=== PATIENT | female | born 1955 | race American Indian/Alaskan Native ===

== ENCOUNTER 2017-02-28 09:48 | Inpatient (IN) | payer MEDICAID ==
[2017-02-26 16:51] VITALS: BMI 45.3
[2017-02-28] MEDS ORDERED: HYDROmorphone 1 mg/ml ISec ONE ×2 (16:19→19:55)
[2017-02-28] MEDS ORDERED: HYDROmorphone 1 mg/ml ISec IVP PRN (19:48)
[2017-02-28] MEDS ORDERED: Fluticasone Nasal 50 mcg/Spray NS PRN (22:26)
[2017-02-28] MEDS ORDERED: Oxycodone/Acetaminophen 5/325 mg Tab PO PRN (22:26)
[2017-03-01 07:32] LABS: BASO # 0.1 K/uL (0.0-0.2); BASO % 0.6 % (0.0-2.0); EOS # 0.3 K/uL (0.0-0.7); EOS % 3.2 % (0.0-4.0); HEMATOCRIT 34.5 % (34.0-47.0); LYMPH # 2.6 K/uL (1.0-4.3); LYMPH % 28.6 % (20.0-40.0); MEAN CELL VOLUME 93.1 fL (81.0-99.0); MEAN CORPUSCULAR HEMOGLOBIN 31.2 pg (27.0-31.0); MEAN CORPUSCULAR HGB CONC 33.5 g/dL (33.0-37.0); MEAN PLATELET VOLUME 10.3 fL (7.2-11.7); MONO # 0.8 K/uL (0.0-0.8); MONO % 8.7 % (0.0-10.0); NRBC % 0.1 % (0.0-2.0); RED CELL DISTRIBUTION WIDTH 14.3 % (11.5-14.5)
[2017-03-01 07:54] LABS: CHLORIDE 107 mmol/L (98-107); SODIUM 138 mmol/L (132-148)
[2017-03-01 07:55] LABS: POTASSIUM 4.5 mmol/L (3.6-5.2)
[2017-03-01 07:57] LABS: ALB/GLOB RATIO 0.9 (1.0-2.1); ALKALINE PHOSPHATASE 144 U/L (38-126); AST/SGOT 36 U/L (14-36); BILIRUBIN,TOTAL 0.5 mg/dL (0.2-1.3); BLOOD UREA NITROGEN 11 mg/dL (7-17); CARBON DIOXIDE 26 mmol/L (22-30); GFR AFRICAN-AMERICAN > 60; GLUCOSE,RANDOM 209 mg/dL (65-105); TOTAL PROTEIN 6.5 g/dL (6.3-8.3)
[2017-03-01 07:58] LABS: ALT/SGPT 68 U/L (9-52); CALCIUM 8.5 mg/dl (8.6-10.4)
[2017-03-01 08:03] VITALS: RESP 20; TEMP 97.9
[2017-03-01] MEDS ORDERED: INSULIN LISPRO PROTAMINE SC SCH (10:00)
[2017-03-01] MEDS ORDERED: ALOGLIPTIN BENZOATE 25 MG PO SCH (10:00)
[2017-03-01] MEDS ORDERED: INSULIN LISPRO SC SCH (10:00)
[2017-03-01] MEDS ORDERED: Midazolam 2 MG/2 ML VIAL ONE ×2 (10:06→11:36)
[2017-03-01] MEDS ORDERED: Iodixanol 320 MG/ML 200 ML BOTTLE IV ONE (10:07)
[2017-03-01] MEDS ORDERED: Lidocaine 2% Inj (20ml) ONE ×2 (10:10→11:34)
[2017-03-01] MEDS: Dorzolamide 2% Opht Sol 10ml OU SCH ×2 (11:00→18:49)
[2017-03-01] MEDS: Magnesium Oxide 400 mg Tab UD PO SCH ×2 (11:00→18:42)
[2017-03-01] MEDS ORDERED: HYDROmorphone 1 mg/ml ISec ONE (12:51)
[2017-03-01] MEDS ORDERED: HYDROmorphone 1 mg/ml ISec IVP STA (12:54)
[2017-03-01 18:09] VITALS: PULSE 74; O2SAT 95
[2017-03-01 18:55] VITALS: BP 130/90
[2017-03-01] MEDS ORDERED: (Lantus) Insulin Glargine, Recombinant SC SCH (22:00)
--- NOTE | 2017-03-08 07:38 | PROCN ---
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 The patient was subsequently sent to the emergency room and was admitted on 02/27. I evaluated the patient on 02/28 and noted to have severely decreased perfusion to the right lower extremity where she had a nonhealing ulcer. The patient was subsequently transferred over to [facility] and underwent an emergent peripheral angiogram for worsening gangrene and pain of the right lower extremity. PROCEDURES PERFORMED: Distal abdominal aortogram with bilateral iliac runoff, selective bilateral iliofemoral angiogram with runoff, 6-Armenian left femoral arterial access, METAL RIVETING MACHINE OPERATOR stenting of the right common iliac and external iliac artery with use of 8.0 x 58 mm balloon expandable Viabahn stent, lesion reduction from 90% down to less than 10% and improvement in gradient from 90 mmHg down to less than 5 mmHg. A 6-Armenian bilateral femoral arterial access. Manual pressure for hemostasis. TECHNIQUES OF PROCEDURE: After obtaining informed consent, the patient was brought to the cardiac cath suite in post-absorptive and non-sedated state. The patient was prepped and draped in the usual sterile fashion. A 2% lidocaine was used for infiltration of anesthesia. Using modified Seldinger technique, 6-Armenian sheath was introduced into the left femoral artery and left iliofemoral angiogram with runoff was performed. Angiographic findings of the left lower extremity: Left common iliac and external iliac arteries are patent. Left common femoral artery has moderate stenosis. Profunda femoris is patent. SFA 100% occluded. Profunda femoris gives collaterals to the popliteal which has two-vessel runoff below the knee. Subsequently, over a Glidewire, Omniflush was advanced to the abdominal aorta. Abdominal aortogram with bilateral iliac runoff was performed. Subsequently, the Omniflush was advanced across the aortoiliac bifurcation upto the right common iliac artery and angiograms were obtained of the right common iliac and right SFA. Angiographic findings of the right lower extremity: Right common iliac 99% stenosis, external iliac has 90% stenosis, common femoral artery is patent, profunda femoris is patent, SFA 100% occluded with 2-vessel runoff below the knee. At this point, it was decided to proceed with the SAFARI technique, a right common femoral arterial access was obtained for antegrade-retrograde to maintain patency within the luminal surface. The wire was advanced through the right common femoral artery, negotiated carefully through the luminal space into the aorta. Subsequently, the crossover sheath was advanced from the left common femoral artery. At this point, angiograms were obtained, the wires were retrieved and balloon angioplasty of the right common iliac, external iliac was done. Subsequently, an 8.0 x 59 mm balloon-expandable Viabahn stent was deployed with lesion reduction down to less than 10% and improvement in DALE flow. Subsequently, pullback gradients were noted, and there was no gradient after the deployment of the stent. IMPRESSION: Successful METAL RIVETING MACHINE OPERATOR stenting of right common iliac, external iliac artery with use of balloon expandable Viabahn wire stent, a 6-Armenian bilateral femoral arterial access. Manual pressure for hemostasis. RECOMMENDATIONS: The patient is to be discharged home in 6 hours. Continue the patient on dual antiplatelet therapy for 1 year. The patient is to follow with Dr. Potter in the office in a week's time. Brandon Potter MD
== END 2017-03-01 21:00 | disposition home or self-care (01) | DRG 478 ==
LOC: C.CATHLAB 09:48 → C.9S 17:23 → C.5S 21:09
PROVIDERS: ADMIT Internal Medicine Interventional Cardiology; ATTEND Internal Medicine Interventional Cardiology
PROC: 047C3D6 (ICD-10-PCS; principal; 2017-03-01)
PROC: B41DYZZ Fluoroscopy of Aorta and Bilateral Lower Extremity Arteries using Other Contrast (ICD-10-PCS; 2017-03-01)
DX: I70.261 Atherosclerosis of native arteries of extremities with gangrene, right leg (principal); L97.519 Non-pressure chronic ulcer of other part of right foot with unspecified severity; E11.621 Type 2 diabetes mellitus with foot ulcer; I10 Essential (primary) hypertension